=== PATIENT | female | born 1965 | race Caucasian/White ===

== ENCOUNTER 2024-07-24 11:32 | Emergency (ER) | payer OTHER ==
[2024-07-24] MEDS ORDERED: Acetaminophen 500 MG TAB ONE (12:31)
[2024-07-24 12:53] LABS: Bilirubin Neg (Negative); Blood, Urine Negative (Negative); Clarity Clear (Clear); Glucose, Urine (Dipstick) Normal (Negative); Ketone, Urine Negative (Negative); Leukocyte Negative (Negative); Nitrite Negative (Negative); Protein, Urine (Dipstick) Negative (Neg-Trace); Urobilinogen Normal mg/dL (Less than 2)
[2024-07-24] MEDS ORDERED: Morphine 4 MG/ML VIAL ONE (13:01)
[2024-07-24 13:06] LABS: CAUTI Indications for Culture Pelvic or flank pain; RBC/HPF None Seen HPF (0-3); Squamous Epithelial 0-3 HPF (0-3); WBC/HPF 0-3 HPF (0-3)
[2024-07-24 13:07] LABS: Bacteria/HPF None Seen HPF (None Seen); Urine Culture Reflex No No
[2024-07-24 13:08] LABS: #Basophils 0.01 10x3/uL (0.0-0.2); #Eosinophils 0.05 10x3/uL (0.0-0.5); #Monocytes 0.54 10x3/uL (0.0-1.1); #Neutrophils 4.62 10x3/uL (1.5-8.4); %Basophils 0.1 % (0.0-2.0); %Eosinophils 0.7 % (0.0-6.0); %Lymphocytes 25.5 % (18.0-47.0); %Monocytes 7.7 % (0.0-10.0); %Neutrophils 65.6 % (40.0-75.0); Hematocrit 42.1 % (34.9-44.5); Hemoglobin 13.9 g/dL (12.0-15.5); Mean Corpuscular Hemoglobin 29.8 pg (27.0-33.0); Mean Corpuscular Volume 90.3 fL (81.6-98.3); Platelet Count 325 10x3/uL (150-450); RBC Distribution Width 11.9 % (11.5-14.5); Red Blood Cell (RBC) Count 4.66 10x6/uL (3.90-5.03); White Blood Cell (WBC) Count 7.1 10x3/uL (3.5-10.5)
[2024-07-24 13:18] LABS: ALT (SGPT) 24 U/L (8-55); AST (SGOT) 19 U/L (5-34); Alkaline Phosphatase 118 U/L (40-110); Anion Gap 14 mmol/L (10-20); BUN (Urea Nitrogen) 9 mg/dL (9.8-20.1); Bilirubin, Total 0.2 mg/dL (0.2-1.2); Calc. Creatinine Clearance 0 mL/min (70-130); Calcium 9.8 mg/dL (7.8-10.44); Carbon Dioxide 28 mmol/L (22-29); Chloride 103 mmol/L (98-107); Estimated GFR 79; Globulin 3.4 g/dL (2.4-3.5); Glucose 81 mg/dL (70-105); Lipase 19 U/L (8-78); Protein, Total 7.4 g/dL (6.0-8.3); Sodium 141 mmol/L (136-145)
[2024-07-24] MEDS ORDERED: Iopamidol 300 61% 100 ML VIAL FS ONE (14:29)
== END 2024-07-24 15:11 | disposition home or self-care (01) ==
LOC: CSHERS 11:32
DX: M48.54XA Collapsed vertebra, not elsewhere classified, thoracic region, initial encounter for fracture (principal); M54.14 Radiculopathy, thoracic region; I74.5 Embolism and thrombosis of iliac artery; I10 Essential (primary) hypertension; F17.200 Nicotine dependence, unspecified, uncomplicated
CPT/HCPCS: 71045; 71275; 74177; 80053; 81001; 83690; 85025; 93005; 96374; J2272